=== PATIENT | male | born 1955 | race Caucasian/White ===

== ENCOUNTER 2021-10-16 14:29 | Inpatient (IN) | payer OTHER ==
[~2021-10-16] VITALS: Ht 188 cm; Wt 102.8 kg
[2021-10-16] MEDS ORDERED: ONDANSETRON HCL 4 MG/2 ML VIAL ONE (14:40)
[2021-10-16] MEDS ORDERED: MORPHINE SULFATE 4 MG/ML SYR/VIAL ONE (14:40)
[2021-10-16] MEDS ORDERED: HEPARIN SODIUM (PORCINE) 5000 UNITS/ML 1ML VIAL IV ONE (14:45)
[2021-10-16] MEDS ORDERED: ASPirin 81 mg TAB PO ONE ×2 (14:45→16:45)
[2021-10-16] MEDS: NITROGLYCERIN 0.4 MG SL TAB SL ONE ×2 (14:56→15:00)
[2021-10-16 14:58] LABS: Basophils # (auto) 0.1 10 ^3/uL (0-0.2); Eosinophils # (auto) 0.2 10 ^3/uL (0-0.8); Eosinophils % (auto) 2.4 % (0.0-7.0); Hematocrit 47.4 % (41.0-53.0); Hemoglobin 15.9 g/dL (13.5-17.5); Lymphocytes % (auto) 31.1 % (10.0-50.0); Mean Corpuscular Hemoglobin 29.2 pg (28.0-32.0); Mean Corpuscular Hgb Conc. 33.5 g/dL (32.0-36.0); Mean Corpuscular Volume 87.2 fL (80.0-100.0); Monocytes # (auto) 0.9 10 ^3/uL (0-1.3); Monocytes % (auto) 8.9 % (0.0-12.0); Neutrophils # (auto) 5.4 10 ^3/uL (1.6-8.6); Neutrophils % (auto) 56.6 % (37.0-80.0); Red Blood Cells 5.44 10^6/uL (4.5-5.90); Red Cell Distribution Width 12.8 % (11.8-14.3); White Blood Cell 9.6 10^3/uL (4.4-10.8)
[2021-10-16] MEDS ORDERED: ONDANSETRON HCL 4 MG/2 ML VIAL IV ONE (15:00)
[2021-10-16] MEDS ORDERED: MORPHINE SULFATE 4 MG/ML SYR/VIAL IV ONE (15:00)
[2021-10-16] MEDS ORDERED: IOHEXOL 350 MG/ML 100ML IJ ONE (15:01)
[2021-10-16] MEDS ORDERED: fentaNYL CITRATE 100 MCG/2 ML VL ONE (15:06)
[2021-10-16] MEDS ORDERED: MIDAZOLAM HCL 2MG/2ML 2ml VIAL (1mg/ml) ONE (15:07)
[2021-10-16] MEDS ORDERED: ANGIOMAX 250 MG VIAL IV ONE (15:09)
[2021-10-16] MEDS ORDERED: SODIUM CHL 0.9% 50 ML ONE ×2 (15:10→16:23)
[2021-10-16 15:15] LABS: Albumin 3.7 g/dL (3.4-5.0); Potassium 4.1 mmol/L (3.5-5.1)
[2021-10-16 15:19] LABS: BUN/Creatinine Ratio 15.2; Bilirubin, Total 0.7 mg/dL (0.2-1.0); Total Protein 7.3 g/dL (6.4-8.2)
[2021-10-16 15:25] LABS: INR 0.96 (0.9-1.15); Partial Thromboplastin Time 23.4 sec (24.6-33.4)
[2021-10-16] MEDS ORDERED: EPTIFIBATIDE INJ (2MG/ML) 10ML VIAL IV ONE (15:28)
[2021-10-16] MEDS ORDERED: TICAGRELOR 90 MG TAB ONE (16:15)
[2021-10-16] MEDS ORDERED: ASPirin 325 MG TAB ONE (16:15)
[2021-10-16] MEDS ORDERED: NITROGLYCERIN 0.4 MG SL TAB SL PRN (16:45)
[2021-10-16] MEDS ORDERED: MORPHINE SULFATE INJ 2 MG/ml SYRG IV PRN (16:45)
[2021-10-16] MEDS ORDERED: METOPROLOL SUCCINATE XL 50 MG TAB PO ONE (16:45)
[2021-10-16] MEDS ORDERED: ATORVASTATIN 20 MG TAB PO ONE (16:45)
[2021-10-16 20:00] VITALS: BP 161/99
[2021-10-16] MEDS: TICAGRELOR 90 MG TAB PO SCH (21:38)
[2021-10-16] MEDS: ATORVASTATIN 20 MG TAB PO SCH (21:38)
[2021-10-16 21:50] VITALS: BP 161/99
[2021-10-17] VITALS (7 sets, daily range): BP systolic 107–158; BP diastolic 57–98
[2021-10-17 06:15] LABS: Basophils # (auto) 0.1 10 ^3/uL (0-0.2); Basophils % (auto) 0.8 % (0.0-2.0); Eosinophils # (auto) 0.2 10 ^3/uL (0-0.8); Eosinophils % (auto) 2.3 % (0.0-7.0); Hematocrit 44.7 % (41.0-53.0); Hemoglobin 15.6 g/dL (13.5-17.5); Lymphocytes # (auto) 2.2 10 ^3/uL (0.4-5.4); Lymphocytes % (auto) 23.5 % (10.0-50.0); Mean Corpuscular Hemoglobin 30.5 pg (28.0-32.0); Mean Corpuscular Volume 87.3 fL (80.0-100.0); Monocytes # (auto) 0.8 10 ^3/uL (0-1.3); Monocytes % (auto) 8.9 % (0.0-12.0); Neutrophils # (auto) 6.1 10 ^3/uL (1.6-8.6); Neutrophils % (auto) 64.5 % (37.0-80.0); Nucleated Red Blood Cells % 0.1 %; Red Blood Cells 5.11 10^6/uL (4.5-5.90); Red Cell Distribution Width 12.9 % (11.8-14.3); White Blood Cell 9.5 10^3/uL (4.4-10.8)
[2021-10-17 06:22] LABS: Calcium 8.8 mg/dL (8.5-10.1)
[2021-10-17 06:24] LABS: BUN/Creatinine Ratio 14.1
[2021-10-17] MEDS ORDERED: LISI-716 PO (10:07)
[2021-10-17] MEDS ORDERED: METO-6 PO (10:07)
[2021-10-17] MEDS ORDERED: ATOR20TA50 PO (10:07)
[2021-10-17] MEDS ORDERED: TICA90TA PO (10:07)
[2021-10-17] MEDS ORDERED: ASPI-325 PO (10:07)
[2021-10-17] MEDS ORDERED: LISINOPRIL 10 MG TAB PO ONE (10:15)
[2021-10-17] MEDS: METOPROLOL SUCCINATE XL 50 MG TAB PO SCH (10:22)
[2021-10-17] MEDS: TICAGRELOR 90 MG TAB PO SCH ×2 (10:22→21:26)
[2021-10-17] MEDS: ASPirin 81 mg TAB PO SCH (10:23)
[2021-10-17] MEDS ORDERED: SODIUM CHLORIDE 0.9% 1,000 ML IV ONE (17:00)
[2021-10-17 18:51] LABS: Potassium 3.9 mmol/L (3.5-5.1)
[2021-10-17 18:54] LABS: Magnesium 2.3 mg/dL (1.6-2.6)
[2021-10-17] MEDS: ATORVASTATIN 20 MG TAB PO SCH (21:26)
[2021-10-18 04:54] VITALS: BP 128/78
[2021-10-18 09:00] VITALS: BP 128/84
[2021-10-18] MEDS: TICAGRELOR 90 MG TAB PO SCH (09:53)
[2021-10-18] MEDS: ASPirin 81 mg TAB PO SCH (09:53)
[2021-10-18] MEDS: METOPROLOL SUCCINATE XL 50 MG TAB PO SCH (09:54)
[2021-10-18] MEDS ORDERED: LISINOPRIL 10 MG TAB PO SCH (10:00)
[2021-10-18 13:00] VITALS: BP 128/89
== END 2021-10-18 14:00 | disposition home or self-care (01) | DRG 246 ==
LOC: ER 14:29 → OVERFLOW 16:43 → TELE-CENTR 17:36
PROVIDERS: ADMIT Specialist; ATTEND Specialist
PROC: 027034Z Dilation of Coronary Artery, One Artery with Drug-eluting Intraluminal Device, Percutaneous Approach (ICD-10-PCS; principal; 2021-10-16)
PROC: 02703ZZ Dilation of Coronary Artery, One Artery, Percutaneous Approach (ICD-10-PCS; 2021-10-16)
PROC: B240ZZ3 Ultrasonography of Single Coronary Artery, Intravascular (ICD-10-PCS; 2021-10-16)
PROC: 4A023N7 Measurement of Cardiac Sampling and Pressure, Left Heart, Percutaneous Approach (ICD-10-PCS; 2021-10-16)
PROC: B2121ZZ Fluoroscopy of Single Coronary Artery Bypass Graft using Low Osmolar Contrast (ICD-10-PCS; 2021-10-16)
PROC: B2111ZZ Fluoroscopy of Multiple Coronary Arteries using Low Osmolar Contrast (ICD-10-PCS; 2021-10-16)
PROC: 04HY32Z Insertion of Monitoring Device into Lower Artery, Percutaneous Approach (ICD-10-PCS; 2021-10-16)
PROC: 4A133B1 Monitoring of Arterial Pressure, Peripheral, Percutaneous Approach (ICD-10-PCS; 2021-10-16)
PROC: 4A133J1 Monitoring of Arterial Pulse, Peripheral, Percutaneous Approach (ICD-10-PCS; 2021-10-16)
DX: T82.858A Stenosis of other vascular prosthetic devices, implants and grafts, initial encounter (principal); I21.19 ST elevation (STEMI) myocardial infarction involving other coronary artery of inferior wall; I10 Essential (primary) hypertension; E66.9 Obesity, unspecified; I25.10 Atherosclerotic heart disease of native coronary artery without angina pectoris; E78.5 Hyperlipidemia, unspecified; Z20.822 Contact with and (suspected) exposure to COVID-19; Y83.8 Other surgical procedures as the cause of abnormal reaction of the patient, or of later complication, without mention of misadventure at the time of the procedure; Z82.49 Family history of ischemic heart disease and other diseases of the circulatory system; Z95.1 Presence of aortocoronary bypass graft; Z95.5 Presence of coronary angioplasty implant and graft; Z68.29 Body mass index [BMI] 29.0-29.9, adult
CPT/HCPCS: 36415; 71045; 80048; 80053; 83735; 84132; 84484; 85025; 85610; 85730; 86850; 86900; 86901; 92920; 92937; 92978; 93005; 93306; 93459; 96374; 96375; 99152; 99153; 99291; C1769; C1874; C1887; G0378; J2250; J2405

== ENCOUNTER 2022-11-01 03:40 | Emergency (ER) | payer MEDICARE, OTHER ==
[~2022-11-01] VITALS: Ht 180.3 cm; Wt 102.3 kg
[~2022-11-01 03:40] MED LIST: ASPI-325 PO; ATOR20TA50 PO; LISI10TA34 PO; METO-6 PO; TICA90TA PO
[2022-11-01] MEDS ORDERED: KETOROLAC TROMETH 60MG/2ML VIAL IM ONE ×2 (04:30→05:00)
[2022-11-01] MEDS ORDERED: DexAMETHasone SOD PHOS 10MG/1ML VIAL INJ IM ONE (04:30)
[2022-11-01] MEDS ORDERED: PRED30TA4 PO (04:31)
[2022-11-01] MEDS ORDERED: INDO50CA82 PO (04:31)
[2022-11-01 04:59] VITALS: BP 149/87; PULSE 20; RESP 20; O2SAT 96
== END 2022-11-01 05:08 | disposition home or self-care (01) ==
LOC: ER 03:40
DX: M10.9 Gout, unspecified (principal); E78.5 Hyperlipidemia, unspecified; I10 Essential (primary) hypertension
CPT/HCPCS: 96372; 99284; J1100; J1885